=== PATIENT | female | born 1935 | race Caucasian/White ===

== ENCOUNTER 2020-04-07 18:38 | Emergency (ER) | payer MEDICARE ==
[~2020-04-07] VITALS: Ht 154.9 cm; Wt 98.4 kg
--- NOTE | ~2020-04-07 | EMS ---
[address] [address] EMS Patient Care Report Name: DRAGAN MOORE Room: [facility] Casey#: [id number] Admission: 04/07/20 Attend Phys: Discharge: 04/07/20 Date of : 39 Report #: [id number] THIS REPORT FOR: //name// Report Transmitted: 04/08/2020 05:18 EMS Care Summary [facility] Incident [id number] @ 04/07/2020 17:59 Incident Location [address] [place], [place] [id number] Patient maryam moore Female, 84 Years 1935 Patient Address [address] [place] [id number] Patient History Congestive Heart Failure (CHF),Gastro-Esophageal Reflux Disease (GERD),Hypertension (HTN), Patient Allergies , Patient Medications fluticasone, Furosemide, Losartan, meloxicam, Omeprazole, Premarin, Triamcinolone, tizanidine, zolpidem, Chief Complaint Fever Disposition Transported No Lights/[place] Dispatch Reason Sick Person Transported To [facility] Narrative Medic 320 was dispatched for a 911 call for an abdominal pain. Medic 320 arrived on scene to find a female subject laying on her side in her bed. The [address] [address] EMS Patient Care Report Name: DRAGAN MOORE [id number] Admission: 04/07/20 Attend Phys: Discharge: 04/07/20 Date of : 39 Report #: [id number] patient stated that she had a fever that started around 5 pm this evening. She also stated that she throw up one time. The patient had a history of UTI. Medic 320 started an assessment on the patient. Medic 320 assisted/ walked the patient to the litter, and secured her using all the straps provided. The patient was transported to the [facility] without difficulty. Medic 322 transported the patient to the ambulance using the litter. Once in the back of the ambulance Medic 322 continued her assessment on the patient. Once in the back of the ambulacne Medic 320 continued her assessment on the patient. Jean-Pierre Hastings took a set of vitals on the patient about every ten to fifteen minutes. The patient rested comfortably on the [facility] during the transport. She wanted to be transported to [place]. Medic 322 arrived at [facility] and transported the patient to her room using the litter. The patient slid herself over to the hospital bed. Medic 320 gave a verbal report to the nurse, and transferred patient care to the nurse. Medic 320 gave a verbal report to the nurse, and transferred patient care to the nurse. HIPAA was signed by the nurse. Jean-Pierre Hastings EMT-P #[id number] Initial Vitals @18:29P: 106,R: 18,BP: 169/116, @18:09P: 100,R: 18,BP: 149/100, @18:29GCS: 15, @18:09GCS: 15, Assessments @18:03MENTAL:SKIN:HEENT:LUNG SOUNDS:ABDOMEN:PELVIS//GI:EXTREMITIES:PULSE:NEURO: Impression Influenza Timeline 17:58,Call Received 17:58,Dispatch Notified 17:58,Psap Call 17:59,Dispatched 17:59,En Route 18:02,On Scene 18:03,At Patient 18:09,BP: 149/100 M,PULSE: 100,RR: 18 R,SPO2: Ox,ETCO2: ,BG: ,PAIN: ,GCS: , 18:09,BP: / M,PULSE: ,RR: R,SPO2: Ox,ETCO2: ,BG: ,PAIN: ,GCS: 15, 18:18,Depart Scene 18:29,BP: 169/116 M,PULSE: 106,RR: 18 R,SPO2: Ox,ETCO2: ,BG: ,PAIN: ,GCS: , 18:29,BP: / M,PULSE: ,RR: R,SPO2: Ox,ETCO2: ,BG: ,PAIN: ,GCS: 15, 18:32,At Destination 18:45,[place] [address] EMS Patient Care Report Name: DRAGAN MOORE Room: [facility]#: [id number] Admission: 04/07/20 Attend Phys: Discharge: 04/07/20 Date of : 39 Report #: [id number] Disclaimer [email or web address] Copyright 2020 [employer] This EMS Care Summary contains data elements from the applicable legal record (which may be displayed differently). It is designed to provide pertinent information for the following purposes: continuity of care, clinical quality, and state data reporting. The complete legal record is available to ED staff and administrators of the receiving hospital in [employer]'s Patient Tracker. All data is provided "as is."
[2020-04-07] MEDS ORDERED: FUROSEMIDE 20 M20 MG PO (18:55)
[2020-04-07] MEDS ORDERED: COZAAR 25 MG TA25 M1 PO (18:55)
[2020-04-07] MEDS ORDERED: HIPREX1 GM PO (18:56)
[2020-04-07 19:53] LABS: ABSOLUTE EOSINOPHILS 0.2 thou/uL (0.0-0.7); ABSOLUTE LYMPHOCYTES 0.5 thou/uL (0.8-5.3); ABSOLUTE MONOCYTES 0.6 thou/uL (0.0-1.2); ABSOLUTE NEUTROPHILS 6.9 thou/uL (1.6-8.1); BASOPHILS 0.3 %; EOSINOPHILS 1.9 %; HEMATOCRIT 35.7 % (37.0-47.0); HEMOGLOBIN 12.4 gm/dL (12.0-15.0); LYMPHOCYTES 5.8 %; MCH 31.5 pg (26.0-34.0); MCHC 34.8 g/dL (28.0-37.0); MCV 90.5 fL (80.0-100.0); MONOCYTES 7.7 %; MPV 8.1 fl. (7.2-11.1); NUCLEATED RBCS 0 /100WBC; PLATELET COUNT* 156 thou/uL (150-400); POLYS 84.3 %; RBC 3.94 mil/uL (4.20-5.00); RDW-CV 13.8 % (10.5-14.5); WBC 8.2 thou/uL (4.0-11.0)
[2020-04-07 20:08] LABS: URINE BILIRUBIN NEGATIVE (Negative); URINE BLOOD NEGATIVE (Negative); URINE COLOR YELLOW; URINE GLUCOSE-RANDOM NEGATIVE (Negative); URINE KETONES NEGATIVE (Negative); URINE LEUKOCYTES-REFLEX TRACE (Negative); URINE NITRITE-REFLEX NEGATIVE (Negative); URINE PROTEIN NEGATIVE (Negative); URINE UROBILINOGEN 0.2 E.U./dl (0.2-1.0)
[2020-04-07 20:12] LABS: URINE CLARITY HAZY
[2020-04-07 20:14] LABS: CALCIUM 9.1 mg/dL (8.5-10.1); CREATININE 1.1 mg/dL (0.6-1.3); POTASSIUM 3.7 mmol/L (3.5-5.1)
[2020-04-07 20:18] LABS: ALBUMIN 3.5 g/dL (3.4-5.0)
[2020-04-07 20:18] LABS: BACTERIA-REFLEX >30 Many /HPF (None Seen); MUCUS None Seen strn/LPF (None Seen); SQUAMOUS >10 Many /LPF (0-3); URINE WBC-REFLEX >25 Many /HPF (0-5)
[2020-04-07 20:19] LABS: CASTS None Seen /LPF (None Seen); CRYSTALS None Seen /LPF (None Seen); URINE RBC None Seen /HPF (0-2)
[2020-04-07] MEDS ORDERED: MACROBID 100 M100 M2 PO (21:37)
[2020-04-07 21:51] VITALS: BP 142/68
--- NOTE | 2020-04-08 09:36 | EKG ---
[place] [address] ELECTROCARDIOGRAM REPORT Name: DRAGAN MOORE Room: [facility]#: [id number] Admission: 04/07/20 Attend Phys: Discharge: 04/07/20 Date of : 39 Date of Service: 04/07/201909 Report #: [id number] THIS REPORT FOR: //name// [facility] ED Test Date: 2020-04-07 Test Time: 19:10:48 Pat Name: DRAGAN MOORE Department: Room: Gender: Patient Monitor: CALI : 1935 Requested By: Chelsea Vail Order Number: [id number] MD: Israel Stevenson Measurements Intervals [place] Rate: 95 P: 51 IA: 188 QRS: -7 QRSD: 150 T: 14 QT: 361 QTc: 454 Interpretive Statements Sinus rhythm Atrial premature complex Right bundle branch block Compared to ECG 09/23/2008 14:31:56 Atrial premature complex(es) now present Right bundle-branch block now present Electronically Signed On 04-08-2020 9:36:33 CDT by Israel Stevenson [email or web address] <ELECTRONICALLY SIGNED> By: Israel Stevenson MD, FACC 04/08/20 0936 09 09 Israel Stevenson MD, [facility] /EPI
== END 2020-04-07 22:17 | disposition home or self-care (01) ==
LOC: M.ERS 18:38
PROVIDERS: Nurse Practitioner Family
DX: N39.0 Urinary tract infection, site not specified (principal); Z79.899 Other long term (current) drug therapy; Z88.1 Allergy status to other antibiotic agents; Z88.6 Allergy status to analgesic agent; Z88.2 Allergy status to sulfonamides; Z91.040 Latex allergy status; Z90.49 Acquired absence of other specified parts of digestive tract; Z90.710 Acquired absence of both cervix and uterus